=== PATIENT | male | born 1995 | race Two or more races ===

== ENCOUNTER 2018-08-09 19:36 | Observation (INO) | payer OTHER ==
[~2018-08-09] VITALS: Ht 172.7 cm; Wt 73.8 kg
[2018-08-09 20:22] LABS: MEAN CORPUSCULAR HEMOGLOBIN 33.7 pg (27.5-34.5); MEAN CORPUSCULAR HGB CONC 34.5 g/dL (33.2-36.2); MEAN CORPUSCULAR VOLUME 97.7 fL (81-97); MEAN PLATELET VOLUME 7.7 fL (7.4-10.4); PLATELET COUNT 386 x10^3/uL (130-400); RED BLOOD COUNT 4.85 x10^6/uL (4.38-5.82); RED CELL DISTRIBUTION WIDTH 11.9 % (9.4-14.8)
[2018-08-09 20:28] LABS: MICROSCOPIC NOT IND
[2018-08-09 20:30] LABS: CULTURE INDICATED? NO
[2018-08-09 20:32] LABS: ALANINE AMINOTRANSFERASE 17 U/L (12-78); ALBUMIN 4.4 g/dL (3.4-5.0); ANION GAP 8 mmol/L (5-15); CALCIUM 8.7 mg/dL (8.5-10.1); CHLORIDE 104 mmol/L (98-107); CREATININE 1.01 mg/dL (0.7-1.3)
[2018-08-09 20:34] LABS: ALKALINE PHOSPHATASE 81 U/L (45-117); BILIRUBIN,TOTAL 0.7 mg/dL (0.2-1.0)
[2018-08-09 20:42] LABS: BASOPHILS # (AUTO) 0.15 x10^3/uL (0-0.1); BASOPHILS % (AUTO) 1 % (0-1); EOSINOPHILS # (AUTO) 0.18 x10^3/uL (0-0.4); EOSINOPHILS % (AUTO) 1 % (1-7); LYMPHOCYTES # (AUTO) 2.37 x10^3/uL (1-3.4); LYMPHOCYTES % (AUTO) 10 % (22-44); MD SCAN; MONOCYTES % (AUTO) 4 % (2-9); NEUTROPHILS % (AUTO) 84 % (42-75)
[2018-08-09] MEDS ORDERED: SODIUM CHLORIDE FLUSH 10ML SYR IVF ONE (21:00)
[2018-08-09] MEDS ORDERED: OMNIPAQUE 350 MG/ML, 100ML BOTTLE ONE (21:11)
[2018-08-09] MEDS ORDERED: SODIUM CHLORIDE 0.9% 1,000 ML IV ONE (21:44)
[2018-08-09] MEDS ORDERED: CEFOTETAN PMX 1GM/50ML 50 ML ONE (21:44)
[2018-08-09] MEDS ORDERED: BUPIVACAINE/PF-EPI 0.5% 1:200K ONE (21:48)
[2018-08-09] MEDS ORDERED: SODIUM CHLORIDE FLUSH 10ML SYR IVF PRN (22:00)
[2018-08-09] MEDS ORDERED: CEFOTETAN PMX 1GM/50ML 50 ML IVPB ONE (22:00)
[2018-08-09] MEDS ORDERED: MIDAZOLAM 1 MG/ML, 2ML ONE (22:17)
[2018-08-09] MEDS ORDERED: FENTANYL PF 250 MCG/5ML ONE (22:18)
[2018-08-09] MEDS ORDERED: BUPIVACAINE/PF-EPI 0.5% 1:200K INFIL ONE (22:39)
[2018-08-09] MEDS ORDERED: KETOROLAC 30 MG/1 ML ONE ×2 (22:44)
[2018-08-09] MEDS ORDERED: NEOSTIGMINE 1 MG/ML, 10ML ONE (22:44)
[2018-08-09] MEDS ORDERED: ONDANSETRON 2MG/ML, 2ML ONE (22:44)
[2018-08-09] MEDS ORDERED: SUCCINYLCHOLINE 20 MG/ML, 10ML ONE (22:44)
[2018-08-09] MEDS ORDERED: DEXAMETHASONE 4 MG/ML, 1ML ONE (22:44)
[2018-08-09] MEDS ORDERED: GLYCOPYRROLATE 0.2MG/1ML, 5ML ONE (22:44)
[2018-08-09] MEDS ORDERED: CEFAZOLIN 1,000 MG ONE (22:44)
[2018-08-09] MEDS ORDERED: PROPOFOL 10 MG/ML, 20ML ONE (22:44)
[2018-08-09] MEDS ORDERED: ROCURONIUM 10MG/ML,5ML ONE (22:44)
[2018-08-09] MEDS ORDERED: SCOPOLAMINE PATCH, 1.5MG PATCH.TD72 TD PRN (23:00)
[2018-08-09] MEDS ORDERED: PROMETHAZINE 25 MG SUPP PR PRN (23:00)
[2018-08-09] MEDS ORDERED: ACETAMINOPHEN 325 MG TABLET PO PRN (23:00)
[2018-08-09] MEDS ORDERED: LABETALOL 5MG/ML, 20ML IV PRN (23:00)
[2018-08-09] MEDS ORDERED: FENTANYL PF 100 MCG/2ML IV PRN (23:00)
[2018-08-09] MEDS ORDERED: HYDROmorphone 1 MG/ML, 1ML IV PRN (23:00)
[2018-08-09] MEDS ORDERED: OXYcodone 5 MG/5 ML ORAL.SOL UDC PO PRN (23:00)
[2018-08-09] MEDS ORDERED: MEPERIDINE/PF 25MG/0.5ML IVPush PRN (23:00)
[2018-08-09] MEDS ORDERED: ALBUTEROL/IPRATROPIUM 2.5MG/0.5MG, 3 ML NPPB PRN (23:00)
[2018-08-09] MEDS ORDERED: MIDAZOLAM 1 MG/ML, 2ML IV PRN (23:00)
[2018-08-09] MEDS ORDERED: ONDANSETRON 2MG/ML, 2ML IV PRN (23:00)
[2018-08-09] MEDS ORDERED: OXYcodone 5 MG/5 ML ORAL.SOL UDC ONE (23:11)
[2018-08-10] MEDS ORDERED: ONDANSETRON 2MG/ML, 2ML IVPush PRN (01:30)
[2018-08-10] MEDS ORDERED: OXYcodone/APAP 5/325MG TABLET PO PRN (01:30)
[2018-08-10] MEDS ORDERED: MORPHINE SULFATE 4 MG/ML, 1ML IVPush PRN (01:30)
[2018-08-10] MEDS ORDERED: DIPHENHYDRAMINE 25 MG CAPSULE PO PRN (01:30)
[2018-08-10 04:03] VITALS: BP 102/55
[2018-08-10 07:05] VITALS: BP 103/50
[2018-08-10] MEDS ORDERED: SODIUM CHLORIDE FLUSH 10ML SYR IVF SCH (09:00)
== END 2018-08-10 10:30 | disposition home or self-care (01) ==
LOC: ED 22:05 → EDIP 22:16 → UNDOADMIN 22:16 → INTOOBSV 08-10 → 4NOR 08-10 → UNDOADMIN 08-10 00:55 → DCLOUNGE 08-10 10:17
PROVIDERS: ADMIT Internal Medicine; ATTEND Internal Medicine
DX: K35.80 Unspecified acute appendicitis (principal)
CPT/HCPCS: 36415; 44970; 74177; 80053; 81003; 83605; 85025; 87040; 88304; 96365; 99285; G0378; J0330; J0690; J1100; J1885; J2250; J2405; J2704; J2710; J3010; J3490; Q9967; S0074